=== PATIENT | female | born 1965 | race Two or more races ===

== ENCOUNTER 2025-04-22 19:04 | Outpatient (CLI) | payer OTHER, SELFPAY | END 2025-04-22 19:05 | disposition home or self-care (01) | LOC: AMB 04-26 07:11 | PROVIDERS: Visit Provider Family Medicine | DX: S49.91XA Unspecified injury of right shoulder and upper arm, initial encounter (principal); S29.9XXA Unspecified injury of thorax, initial encounter; V49.50XA Passenger injured in collision with unspecified motor vehicles in traffic accident, initial encounter; Y92.410 Unspecified street and highway as the place of occurrence of the external cause | CPT/HCPCS: A0425; A0429 ==